=== PATIENT | female | born 1940 | race Caucasian/White ===

== ENCOUNTER 2023-12-08 19:56 | Inpatient (IN) | payer OTHER ==
[~2023-12-08] VITALS: Ht 157.5 cm; Wt 95.3 kg
[~2023-12-08 19:56] MED LIST: ASPIRIN81 MG PO; FISH OIL 1,0001 EAC3 PO; GLIMEPIRIDE4 MG PO; LEVOTHYROXINE50 MCG PO; METFORMIN HCL500 MG PO; WOMEN'S DAILY1 EAC2 PO; ZESTORETIC 20-1 EAC1 PO
[2023-12-08 20:05] VITALS: TEMP 97.7
[2023-12-08 21:16] LABS: BASOPHILS % 0.3 % (0.0-1.0); EOSINOPHILS # (AUTO) 0.2 (0.0-0.4); EOSINOPHILS % 3.1 % (0.0-6.0); HEMATOCRIT 36.4 % (34.2-44.1); HEMOGLOBIN 11.5 g/dL (12.0-16.0); LYMPHOCYTES % 31.1 % (18.0-39.1); MEAN CORPUSCULAR HEMOGLOBIN 29.3 pg (28-32); MEAN CORPUSCULAR HGB CONC 31.6 g/dL (31-35); MEAN CORPUSCULAR VOLUME 92.9 fL (81-99); MONOCYTES # (AUTO) 0.6 (0.2-0.8); MONOCYTES % 8.5 % (4.4-11.3); NEUTROPHILS # (AUTO) 3.7 (2.1-6.9); NEUTROPHILS % 56.4 % (38.7-80.0); PLATELET COUNT 197 x10e3/uL (140-360); RED BLOOD COUNT 3.92 x10e6/uL (3.6-5.1); RED CELL DISTRIBUTION WIDTH 14.7 % (11.7-14.4); WHITE BLOOD COUNT 6.55 x10e3/uL (4.8-10.8)
[2023-12-08 21:32] LABS: ALBUMIN 2.9 g/dL (3.5-5.0); ALBUMIN/GLOBULIN RATIO 0.9 (0.8-2.0); ANION GAP 15.5 mmol/L (8-16); BILIRUBIN,TOTAL 0.7 mg/dL (0.2-1.2); CALCIUM 8.6 mg/dL (8.4-10.2); CREATININE, SERUM 0.93 mg/dL (0.57-1.11); POTASSIUM 3.5 mmol/L (3.5-5.1)
[2023-12-08 21:38] LABS: TROPONIN I 0.027 ng/mL (0-0.300)
[2023-12-08] MEDS: ONDANSETRON HCL INJ 2MG/ML 2ML 2 MG/ML VIAL IV PRN (23:39)
[2023-12-08] MEDS: SODIUM CHLORIDE 0.9% 1000ML 1,000 ML IV SCH (23:39)
[2023-12-08] MEDS: Morphine 4mg INJECTION 4 MG/ML INJ IV PRN (23:40)
[2023-12-09] VITALS (8 sets, daily range): BP systolic 114–188; BP diastolic 53–70; PULSE 57–67; RESP 15–18; TEMP 97.6–98.5; O2SAT 97–99
[2023-12-09 04:43] LABS: BASOPHILS % 0.4 % (0.0-1.0); EOSINOPHILS # (AUTO) 0.2 (0.0-0.4); EOSINOPHILS % 4.3 % (0.0-6.0); HEMATOCRIT 32.5 % (34.2-44.1); HEMOGLOBIN 10.2 g/dL (12.0-16.0); LYMPHOCYTES # (AUTO) 1.9 (1.0-3.2); LYMPHOCYTES % 37.6 % (18.0-39.1); MEAN CORPUSCULAR HEMOGLOBIN 29.1 pg (28-32); MEAN CORPUSCULAR HGB CONC 31.4 g/dL (31-35); MEAN CORPUSCULAR VOLUME 92.9 fL (81-99); MONOCYTES # (AUTO) 0.5 (0.2-0.8); MONOCYTES % 8.9 % (4.4-11.3); NEUTROPHILS # (AUTO) 2.4 (2.1-6.9); PLATELET COUNT 183 x10e3/uL (140-360); RED CELL DISTRIBUTION WIDTH 14.6 % (11.7-14.4); WHITE BLOOD COUNT 5.08 x10e3/uL (4.8-10.8)
[2023-12-09 05:07] LABS: ALBUMIN 2.5 g/dL (3.5-5.0); ANION GAP 12.2 mmol/L (8-16); BILIRUBIN,TOTAL 0.5 mg/dL (0.2-1.2); CALCIUM 8.1 mg/dL (8.4-10.2); CREATININE, SERUM 0.84 mg/dL (0.57-1.11)
[2023-12-09 05:13] LABS: TROPONIN I 0.023 ng/mL (0-0.300)
[2023-12-09 05:15] LABS: POTASSIUM 3.2 mmol/L (3.5-5.1)
[2023-12-09] MEDS: SODIUM CHLORIDE 0.9% 1000ML 1,000 ML IV SCH (12:13)
[2023-12-09] MEDS ORDERED: GADOBENATE DIMEGLUMINE 1 ML IV ONE (12:21)
[2023-12-09] MEDS ORDERED: GLIPIZIDE5 MG PO (13:27)
[2023-12-09] MEDS ORDERED: DORZOLAMIDE HCL10 ML OU (13:27)
[2023-12-09] MEDS ORDERED: LUMIGAN2.5 M1 OU (13:27)
[2023-12-09] MEDS ORDERED: ATORVASTATIN CA20 MG PO (13:27)
[2023-12-09] MEDS ORDERED: PANTOPRAZOLE SO40 MG PO (13:27)
[2023-12-09] MEDS ORDERED: NEURONTIN100 MG PO (13:27)
[2023-12-09] MEDS ORDERED: LEXAPRO5 MG PO (13:27)
[2023-12-09] MEDS ORDERED: CARVEDILOL3.125 MG PO (13:27)
[2023-12-09] MEDS ORDERED: HUMALOG100 UNIT/1 SQ (13:29)
[2023-12-09 15:04] LABS: TROPONIN I 0.029 ng/mL (0-0.300)
[2023-12-09] MEDS: NIFEDIPINE CR 30 MG TAB PO SCH (15:31)
[2023-12-09] MEDS: CARVEDILOL 12.5 MG TAB PO SCH (17:04)
[2023-12-09] MEDS: BALSAM PERU/CASTOR OIL 60 GM OINT...G. TP SCH (17:59)
[2023-12-10 03:20] VITALS: BP 142/63; PULSE 61; RESP 18; TEMP 98.3; O2SAT 100
[2023-12-10] MEDS: INSULIN LISPRO 100 UNIT/1 ML 3ML VIAL SQ SCH (07:30)
[2023-12-10 08:31] VITALS: BP 143/54; PULSE 68; RESP 17; TEMP 97.2; O2SAT 98
[2023-12-10] MEDS: LEVOTHYROXINE SODIUM 50 MCG TAB PO SCH (09:10)
[2023-12-10] MEDS: ASPIRIN 81 MG CHEW TAB PO SCH (09:10)
[2023-12-10] MEDS: GABAPENTIN 100 MG CAP PO SCH (09:10)
[2023-12-10] MEDS: GLIPIZIDE 5 MG TAB PO SCH (09:10)
[2023-12-10 11:40] VITALS: BP 138/63; PULSE 64; RESP 18; O2SAT 99
[2023-12-10 16:46] VITALS: BP 129/60; PULSE 62; RESP 18; O2SAT 99
[2023-12-10] MEDS: ENOXAPARIN SOD INJ 40 MG/0.4 ML SYR SC SCH (17:12)
[2023-12-10] MEDS: BIMATOPROST(OPTH) 2.5 ML BOTTLE OP SCH (18:00)
[2023-12-10 19:53] VITALS: BP 150/63; PULSE 60; RESP 18; TEMP 97.7; O2SAT 92
[2023-12-10] MEDS: ATORVASTATIN 40 MG TAB PO SCH (21:10)
[2023-12-10 23:50] VITALS: BP 154/70; PULSE 67; RESP 18; TEMP 98.2; O2SAT 96
[2023-12-11 04:01] VITALS: BP 147/69; PULSE 66; RESP 18; TEMP 98.5; O2SAT 97
[2023-12-11 09:25] VITALS: BP 148/62; PULSE 68; RESP 17; TEMP 97.6; O2SAT 99
[2023-12-11 13:08] VITALS: BP 148/71; PULSE 61; RESP 18; TEMP 97.9; O2SAT 100
[2023-12-11 16:21] VITALS: BP 151/62; PULSE 64; RESP 17; TEMP 98.3; O2SAT 99
[2023-12-11] MEDS: TRAMADOL HCL 50 MG TAB PO ONE (17:40)
[2023-12-11 20:00] VITALS: BP 151/62; PULSE 64; RESP 17; TEMP 98.3; O2SAT 99
[2023-12-11 20:50] VITALS: BP 137/62; PULSE 72; RESP 20; TEMP 98.1; O2SAT 96
[2023-12-12] VITALS: BP 138/63; PULSE 64; RESP 20; TEMP 97.7; O2SAT 97
[2023-12-12 05:29] LABS: BASOPHILS % 0.3 % (0.0-1.0); EOSINOPHILS # (AUTO) 0.3 (0.0-0.4); HEMATOCRIT 35.5 % (34.2-44.1); HEMOGLOBIN 10.9 g/dL (12.0-16.0); LYMPHOCYTES # (AUTO) 1.7 (1.0-3.2); LYMPHOCYTES % 27.6 % (18.0-39.1); MEAN CORPUSCULAR HEMOGLOBIN 28.4 pg (28-32); MEAN CORPUSCULAR HGB CONC 30.7 g/dL (31-35); MEAN CORPUSCULAR VOLUME 92.4 fL (81-99); MONOCYTES # (AUTO) 0.6 (0.2-0.8); NEUTROPHILS # (AUTO) 3.6 (2.1-6.9); NEUTROPHILS % 57.1 % (38.7-80.0); PLATELET COUNT 179 x10e3/uL (140-360); RED BLOOD COUNT 3.84 x10e6/uL (3.6-5.1); RED CELL DISTRIBUTION WIDTH 14.5 % (11.7-14.4); WHITE BLOOD COUNT 6.27 x10e3/uL (4.8-10.8)
[2023-12-12 06:05] LABS: ANION GAP 9.3 mmol/L (8-16); CALCIUM 8.2 mg/dL (8.4-10.2); CREATININE, SERUM 0.86 mg/dL (0.57-1.11); POTASSIUM 3.3 mmol/L (3.5-5.1)
[2023-12-12 09:50] VITALS: BP 153/73; PULSE 67; RESP 17; TEMP 98.6; O2SAT 97
[2023-12-12 12:25] VITALS: BP 123/53; PULSE 68; RESP 17; TEMP 98.1; O2SAT 100
[2023-12-12 16:25] VITALS: BP 129/52; PULSE 66; RESP 17; TEMP 98.1; O2SAT 97
[2023-12-12 20:00] VITALS: BP 122/56; PULSE 66; RESP 18; TEMP 98.6; O2SAT 99
[2023-12-12] MEDS: ESCITALOPRAM OXALATE 10 MG TAB PO SCH (20:25)
[2023-12-12] MEDS: TRAMADOL HCL 50 MG TAB PO PRN (20:26)
[2023-12-12] MEDS: BIMATOPROST(OPTH) 2.5 ML BOTTLE OP SCH (20:26)
[2023-12-12] MEDS: DORZOLAMIDE HCL (OPTH) 10 ML BOTTLE OP SCH (20:27)
[2023-12-12 20:30] VITALS: BP 122/56; PULSE 66; RESP 18; TEMP 98.6; O2SAT 99
[2023-12-13] VITALS (8 sets, daily range): BP systolic 111–136; BP diastolic 44–70; PULSE 60–73; RESP 16–20; TEMP 97.7–98.9; O2SAT 92–100
[2023-12-13 06:32] LABS: BASOPHILS % 0.3 % (0.0-1.0); EOSINOPHILS # (AUTO) 0.2 (0.0-0.4); EOSINOPHILS % 2.5 % (0.0-6.0); HEMATOCRIT 34.4 % (34.2-44.1); HEMOGLOBIN 10.6 g/dL (12.0-16.0); LYMPHOCYTES # (AUTO) 1.7 (1.0-3.2); LYMPHOCYTES % 25.3 % (18.0-39.1); MEAN CORPUSCULAR HEMOGLOBIN 28.6 pg (28-32); MEAN CORPUSCULAR HGB CONC 30.8 g/dL (31-35); MEAN CORPUSCULAR VOLUME 92.7 fL (81-99); MONOCYTES # (AUTO) 0.7 (0.2-0.8); MONOCYTES % 10.6 % (4.4-11.3); NEUTROPHILS # (AUTO) 4.1 (2.1-6.9); NEUTROPHILS % 60.7 % (38.7-80.0); PLATELET COUNT 180 x10e3/uL (140-360); RED BLOOD COUNT 3.71 x10e6/uL (3.6-5.1); RED CELL DISTRIBUTION WIDTH 14.4 % (11.7-14.4); WHITE BLOOD COUNT 6.72 x10e3/uL (4.8-10.8)
[2023-12-13 07:12] LABS: ANION GAP 9.4 mmol/L (8-16); CALCIUM 8.2 mg/dL (8.4-10.2); CREATININE, SERUM 0.89 mg/dL (0.57-1.11)
[2023-12-13 07:18] LABS: POTASSIUM 3.4 mmol/L (3.5-5.1)
[2023-12-13] MEDS: COLLAGENASE 5 GM TUBE TOP SCH (11:36)
[2023-12-14] VITALS (8 sets, daily range): BP systolic 100–142; BP diastolic 51–63; PULSE 55–68; RESP 16–20; TEMP 97.1–99.8; O2SAT 97–100
[2023-12-14] MEDS ORDERED: ONDANSETRON HCL 4 MG ORAL DISINTEGRATING TAB PO PRN (13:00)
[2023-12-15 03:37] VITALS: BP 133/63; PULSE 55; RESP 18; TEMP 97.5; O2SAT 100
[2023-12-15 04:05] VITALS: BP 129/58; PULSE 56; RESP 18; TEMP 97.5; O2SAT 97
[2023-12-15 05:21] LABS: BASOPHILS % 0.5 % (0.0-1.0); EOSINOPHILS # (AUTO) 0.3 (0.0-0.4); EOSINOPHILS % 4.5 % (0.0-6.0); HEMATOCRIT 35.4 % (34.2-44.1); LYMPHOCYTES # (AUTO) 1.6 (1.0-3.2); LYMPHOCYTES % 28.3 % (18.0-39.1); MEAN CORPUSCULAR HEMOGLOBIN 29.2 pg (28-32); MEAN CORPUSCULAR HGB CONC 31.1 g/dL (31-35); MEAN CORPUSCULAR VOLUME 93.9 fL (81-99); MONOCYTES # (AUTO) 0.5 (0.2-0.8); MONOCYTES % 9.2 % (4.4-11.3); NEUTROPHILS # (AUTO) 3.1 (2.1-6.9); NEUTROPHILS % 56.8 % (38.7-80.0); PLATELET COUNT 196 x10e3/uL (140-360); RED BLOOD COUNT 3.77 x10e6/uL (3.6-5.1); RED CELL DISTRIBUTION WIDTH 14.3 % (11.7-14.4); WHITE BLOOD COUNT 5.54 x10e3/uL (4.8-10.8)
[2023-12-15 05:34] LABS: INR 0.95; PROTHROMBIN TIME 13.2 seconds (11.9-14.5)
[2023-12-15 05:45] LABS: ANION GAP 11.4 mmol/L (8-16); CALCIUM 8.3 mg/dL (8.4-10.2); CREATININE, SERUM 0.88 mg/dL (0.57-1.11)
[2023-12-15 05:47] LABS: POTASSIUM 3.4 mmol/L (3.5-5.1)
[2023-12-15] MEDS ORDERED: THROMBIN FOR SOLN 5,000 UNIT VIAL ONE (07:17)
[2023-12-15] MEDS ORDERED: Vancomycin IV 1 GM VIAL ONE (07:17)
[2023-12-15 07:24] VITALS: BP 133/62; PULSE 58; RESP 16; TEMP 98.5; O2SAT 100
[2023-12-15] MEDS: DEXTROSE 50% SYRINGE 50 ML IV PRN (08:31)
[2023-12-15] MEDS ORDERED: MAGNESIUM/ALUMINUM/SIMETHICONE 30 ML UDC PO PRN (11:30)
[2023-12-15] MEDS ORDERED: ONDANSETRON HCL INJ 2MG/ML 2ML 2 MG/ML VIAL IV PRN (11:30)
[2023-12-15] MEDS ORDERED: ZOLPIDEM TARTRATE 5 MG TAB PO PRN (11:30)
[2023-12-15] MEDS ORDERED: Morphine 2mg Syringe 2 MG/ML SYR IV PRN (11:30)
[2023-12-15] MEDS ORDERED: PROMETHAZINE HCL (IM) 25 MG/ML VIAL IM PRN (11:30)
[2023-12-15] MEDS ORDERED: MORPHINE SULFATE 5 MG/ML VIAL IM PRN (11:30)
[2023-12-15] MEDS ORDERED: ACETAMINOPHEN 325 MG TAB PO PRN (11:30)
[2023-12-15] MEDS ORDERED: FENTANYL CITRATE/PF 100MCG/2 ML INJ ONE (12:12)
[2023-12-15] MEDS ORDERED: FAMOTIDINE 20 MG/2 ML VIAL IV ONE (12:49)
[2023-12-15] MEDS ORDERED: ONDANSETRON HCL INJ 2MG/ML 2ML 2 MG/ML VIAL ONE (12:49)
[2023-12-15] MEDS ORDERED: PROPOFOL IV EMULSION 10 MG/ML 20 ML VIAL ONE (12:49)
[2023-12-15] MEDS ORDERED: ROCURONIUM BROMIDE 10 MG/ML 5ML VIAL IV ONE (12:49)
[2023-12-15] MEDS ORDERED: ACETAMINOPHEN 1000 MG/100 ML IV ONE (12:49)
[2023-12-15] MEDS ORDERED: DEXAMETHASONE SOD PHOS 10 MG/1 ML VIAL ONE (12:49)
[2023-12-15] MEDS ORDERED: DEXMEDETOMIDINE HCL 200 MCG/2 ML VIAL ONE (12:49)
[2023-12-15] MEDS ORDERED: LIDOCAINE HCL 2% LOCAL INJ 5 ML SDV VIAL INJ ONE (12:49)
[2023-12-15] MEDS ORDERED: KETAMINE 50MG/5ML SYR ONE (12:49)
[2023-12-15] MEDS ORDERED: SUGAMMADEX SODIUM 200 MG/2 ML VIAL IV ONE (12:49)
[2023-12-15] MEDS ORDERED: SEVOFLURANE INHAL SOLN 250 ML PEN BTL ONE (12:49)
[2023-12-15] MEDS: LACTATED RINGER'S 1,000 ML IV SCH (13:16)
[2023-12-15 15:19] VITALS: BP 145/73; PULSE 72; RESP 19; TEMP 97.9; O2SAT 98
[2023-12-15] MEDS: OXYCODONE/ACETAMINOPHEN 5-325 1 EACH TABLET PO PRN (19:39)
[2023-12-15 19:51] VITALS: BP 129/62; PULSE 61; RESP 18; TEMP 97.7; O2SAT 94
[2023-12-15 23:47] VITALS: BP 143/68; PULSE 57; RESP 18; TEMP 97.5; O2SAT 96
[2023-12-16] VITALS (10 sets, daily range): BP systolic 127–145; BP diastolic 43–64; PULSE 52–85; RESP 16–20; TEMP 97.5–98; O2SAT 94–100
[2023-12-17] VITALS (10 sets, daily range): BP systolic 104–157; BP diastolic 43–79; PULSE 61–66; RESP 16–19; TEMP 97.5–97.9; O2SAT 93–100
[2023-12-17 05:40] LABS: BASOPHILS % 0.4 % (0.0-1.0); EOSINOPHILS # (AUTO) 0.4 (0.0-0.4); EOSINOPHILS % 4.7 % (0.0-6.0); HEMATOCRIT 31.8 % (34.2-44.1); HEMOGLOBIN 9.7 g/dL (12.0-16.0); LYMPHOCYTES # (AUTO) 1.5 (1.0-3.2); LYMPHOCYTES % 18.2 % (18.0-39.1); MEAN CORPUSCULAR HEMOGLOBIN 28.5 pg (28-32); MEAN CORPUSCULAR HGB CONC 30.5 g/dL (31-35); MEAN CORPUSCULAR VOLUME 93.5 fL (81-99); MONOCYTES # (AUTO) 0.7 (0.2-0.8); NEUTROPHILS # (AUTO) 5.5 (2.1-6.9); PLATELET COUNT 228 x10e3/uL (140-360); RED CELL DISTRIBUTION WIDTH 14.6 % (11.7-14.4); WHITE BLOOD COUNT 8.13 x10e3/uL (4.8-10.8)
[2023-12-17 06:53] LABS: CALCIUM 8.5 mg/dL (8.4-10.2); CREATININE, SERUM 1.01 mg/dL (0.57-1.11)
[2023-12-17 08:49] LABS: ANION GAP 12.8 mmol/L (8-16)
[2023-12-17 08:54] LABS: POTASSIUM 3.8 mmol/L (3.0-5.1)
[2023-12-17] MEDS: CARISOPRODOL 350 MG TAB PO PRN (10:59)
[2023-12-17] MEDS ORDERED: ONDANSETRON HCL 4 MG ORAL DISINTEGRATING TAB PO PRN (14:30)
[2023-12-17 18:38] LABS: BILIRUBIN,URINE NEGATIVE (NEGATIVE); CLARITY,URINE CLOUDY (CLEAR); COLOR,URINE YELLOW (YELLOW); GLUCOSE, URINE NEGATIVE (NEGATIVE); KETONES,URINE NEGATIVE (NEGATIVE); LEUKOCYTE ESTERASE ,URINE 1+ (NEGATIVE); NITRITE,URINE NEGATIVE (NEGATIVE); PH,URINE 6.5 (5 - 7); PROTEIN,URINE DIPSTICK NEGATIVE (NEGATIVE); URINE UROBILINOGEN 0.2 mg/dL (0.2 - 1)
[2023-12-17 19:03] LABS: BACTERIA,URINE FEW /HPF; EPITHELIAL CELLS,URINE MANY /LPF; WBC,URINE (MAN) >50 /HPF (0-5)
[2023-12-18] VITALS (10 sets, daily range): BP systolic 120–152; BP diastolic 50–66; PULSE 58–68; RESP 16–19; TEMP 97.8–98.1; O2SAT 93–100
[2023-12-18] MEDS: TRAMADOL HCL 50 MG TAB PO PRN (22:28)
[2023-12-19] VITALS: BP 143/58; PULSE 69; RESP 18; TEMP 97.9; O2SAT 100
[2023-12-19 04:00] VITALS: BP 143/60; PULSE 56; RESP 17; TEMP 98.2; O2SAT 96
[2023-12-19 08:35] VITALS: BP 142/64; PULSE 58; RESP 16; TEMP 97.9; O2SAT 100
[2023-12-19 08:50] VITALS: PULSE 59; RESP 18; O2SAT 93
[2023-12-19] MEDS ORDERED: PIPERACILLIN/TAZOBACTAM 3.375 GM VIAL ONE (08:51)
[2023-12-19] MEDS: PANTOPRAZOLE SOD 40 MG TABEC PO SCH (10:19)
[2023-12-19 10:35] VITALS: BP 142/64; PULSE 59; RESP 18; TEMP 97.9; O2SAT 93
[2023-12-19 10:52] LABS: BASOPHILS # (AUTO) 0.1 (0.0-0.1); BASOPHILS % 0.7 % (0.0-1.0); EOSINOPHILS # (AUTO) 0.3 (0.0-0.4); EOSINOPHILS % 4.2 % (0.0-6.0); HEMOGLOBIN 11.1 g/dL (12.0-16.0); LYMPHOCYTES # (AUTO) 1.6 (1.0-3.2); LYMPHOCYTES % 19.3 % (18.0-39.1); MEAN CORPUSCULAR HEMOGLOBIN 29.2 pg (28-32); MEAN CORPUSCULAR HGB CONC 30.8 g/dL (31-35); MEAN CORPUSCULAR VOLUME 94.7 fL (81-99); MONOCYTES # (AUTO) 0.7 (0.2-0.8); MONOCYTES % 7.9 % (4.4-11.3); NEUTROPHILS # (AUTO) 5.4 (2.1-6.9); NEUTROPHILS % 66.2 % (38.7-80.0); PLATELET COUNT 243 x10e3/uL (140-360); RED CELL DISTRIBUTION WIDTH 14.6 % (11.7-14.4); WHITE BLOOD COUNT 8.18 x10e3/uL (4.8-10.8)
[2023-12-19 11:12] LABS: ANION GAP 14.4 mmol/L (8-16); CALCIUM 8.3 mg/dL (8.4-10.2); CREATININE, SERUM 0.79 mg/dL (0.57-1.11)
[2023-12-19 11:25] LABS: POTASSIUM 3.4 mmol/L (3.5-5.1)
[2023-12-19 11:35] VITALS: BP 145/54; PULSE 62; RESP 18; TEMP 97; O2SAT 100
== END 2023-12-19 16:50 | DRG 518 ==
LOC: ER 20:18 → ERHOLD 23:08 → MED/SURG2 12-09 10:18
PROVIDERS: ADMIT Internal Medicine; ATTEND Internal Medicine
PROC: 00NY0ZZ Release Lumbar Spinal Cord, Open Approach (ICD-10-PCS; principal; 2023-12-14)
PROC: 01NB0ZZ Release Lumbar Nerve, Open Approach (ICD-10-PCS; 2023-12-14)
DX: M48.062 Spinal stenosis, lumbar region with neurogenic claudication (principal); L89.153 Pressure ulcer of sacral region, stage 3; R62.7 Adult failure to thrive; I10 Essential (primary) hypertension; R53.81 Other malaise; E78.5 Hyperlipidemia, unspecified; E11.9 Type 2 diabetes mellitus without complications; E03.9 Hypothyroidism, unspecified; M47.816 Spondylosis without myelopathy or radiculopathy, lumbar region; I44.7 Left bundle-branch block, unspecified; F32.9 Major depressive disorder, single episode, unspecified; R60.0 Localized edema; F41.9 Anxiety disorder, unspecified; E66.01 Morbid (severe) obesity due to excess calories; Z68.38 Body mass index [BMI] 38.0-38.9, adult; Z79.82 Long term (current) use of aspirin; Z79.890 Hormone replacement therapy; Z79.84 Long term (current) use of oral hypoglycemic drugs; Z98.1 Arthrodesis status; Z85.528 Personal history of other malignant neoplasm of kidney; Z90.5 Acquired absence of kidney; Z90.49 Acquired absence of other specified parts of digestive tract; Z88.2 Allergy status to sulfonamides; Z83.3 Family history of diabetes mellitus; Z82.49 Family history of ischemic heart disease and other diseases of the circulatory system
CPT/HCPCS: 36415; 71045; 72020; 72100; 72141; 72149; 80048; 80053; 81001; 82550; 82948; 83690; 83880; 84484; 85025; 85610; 85730; 86850; 86900; 88304; 88311; 93005; 93306; 94799; 99252; 99284; J0690; J1100; J1650; J2001; J2270; J2405; J2470; J2543; J7030; J7799

== ENCOUNTER 2024-02-29 15:54 | Outpatient (RCR) | payer OTHER ==
[~2024-02-29 15:54] MED LIST changes: +ATORVASTATIN CA20 MG PO; +CARVEDILOL3.125 MG PO; +DORZOLAMIDE HCL10 ML OU; +GLIPIZIDE5 MG PO; +HUMALOG100 UNIT/1 SQ; +LEXAPRO5 MG PO; +LUMIGAN2.5 M1 OU; +NEURONTIN100 MG PO; +PANTOPRAZOLE SO40 MG PO
== END 2024-03-17 ==
LOC: PT 15:54
PROVIDERS: ATTEND Nurse Practitioner Family
DX: M47.816 Spondylosis without myelopathy or radiculopathy, lumbar region (principal)